=== PATIENT | male | born 1960 | race Caucasian/White ===

== ENCOUNTER 2024-06-08 10:09 | Emergency (ER) | payer SELFPAY ==
[~2024-06-08] VITALS: Ht 180.3 cm; Wt 114.0 kg
[2024-06-08] VITALS (23 sets, daily range): BP systolic 110–154; BP diastolic 63–104
[2024-06-08] MEDS ORDERED: MORPHINE SULFATE 4 MG/ML VIAL IV ONE ×2 (10:55→11:15)
[2024-06-08] MEDS ORDERED: ONDANSETRON HCl 4 MG/2 ML SDV IV ONE (10:55)
[2024-06-08] MEDS ORDERED: Diph, Acellular Pertussis, Tet 0.5 ML/VIAL (Tdap) SDV IM ONE (11:40)
[2024-06-08] MEDS ORDERED: SODIUM CHLORIDE 0.9% 1,000 ML IV ONE (13:00)
[2024-06-08] MEDS ORDERED: PROPOFOL 200 MG/20 ML VIAL IV ONE (13:07)
== END 2024-06-08 14:54 | disposition home or self-care (01) | DRG 563 ==
LOC: ED 10:09
PROC: 0RSJXZZ Reposition Right Shoulder Joint, External Approach (ICD-10-PCS; principal; 2024-06-08)
DX: S43.004A Unspecified dislocation of right shoulder joint, initial encounter (principal); S00.31XA Abrasion of nose, initial encounter; W19.XXXA Unspecified fall, initial encounter; Y92.410 Unspecified street and highway as the place of occurrence of the external cause; Z72.0 Tobacco use; Z20.822 Contact with and (suspected) exposure to COVID-19
CPT/HCPCS: 90715; J2405